=== PATIENT | female | born 1995 | race American Indian/Alaskan Native ===

== ENCOUNTER 2017-10-17 02:39 | Emergency (ER) | payer OTHER ==
[2017-10-17 02:50] VITALS: BP 139/95
[2017-10-17] MEDS ORDERED: XYLOCAINE 2% INFILTRATI ONE ×2 (03:30→03:31)
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
== END 2017-10-17 04:25 | disposition home or self-care (01) ==
LOC: ED 02:39
DX: S01.81XA Laceration without foreign body of other part of head, initial encounter (principal); Z91.013 Allergy to seafood; Y04.0XXA Assault by unarmed brawl or fight, initial encounter; Y93.89 Activity, other specified; Y99.8 Other external cause status; Y92.89 Other specified places as the place of occurrence of the external cause